=== PATIENT | male | born 1940 | race Caucasian/White ===

== ENCOUNTER 2024-10-21 11:13 | Inpatient (IN) | payer OTHER ==
[2024-10-21] MEDS ORDERED: LOPERAMIDE HCL 2 MG CAPSULE PO PRN (11:44)
[2024-10-21] MEDS ORDERED: hydrOXYzine PAMOATE 25 MG CAPSULE (FP) PO PRN (11:44)
[2024-10-21] MEDS ORDERED: IBUPROFEN 600 MG TABLET (FP) PO PRN (11:44)
[2024-10-21] MEDS ORDERED: IBUPROFEN 400 MG TABLET (FP) PO PRN (11:44)
[2024-10-21] MEDS ORDERED: BENZONATATE 200 MG CAPSULE PO PRN (11:44)
[2024-10-21] MEDS ORDERED: ONDANSETRON *ODT* 4 MG TABLET SL PRN (11:44)
[2024-10-21] MEDS ORDERED: BENZOCAINE/MENTHOL (CHLORASEPTIC ) LOZENGE MM PRN (11:44)
[2024-10-21] MEDS ORDERED: BISMUTH SUBSALICYLATE 262 MG/15 ML BTL PO PRN (11:44)
[2024-10-21] MEDS ORDERED: DICYCLOMINE HCL 10 MG CAPSULE PO PRN (11:44)
[2024-10-21] MEDS ORDERED: MAG HYDROX/AL HYDROX/SIMETH 30 ML UNIT-DOSE CUP PO PRN (11:44)
[2024-10-21] MEDS ORDERED: guaiFENesin 600 MG TABLET.ER (FP) PO PRN (11:44)
[2024-10-21] MEDS ORDERED: NALOXONE (NARCAN) HCL 4 MG/0.1 ML SPRAY NS PRN (11:44)
[2024-10-21] MEDS ORDERED: POLYETHYLENE GLYCOL (HEALTHYLAX) 3350 17 GM PACKET PO PRN (11:44)
[2024-10-21] MEDS ORDERED: MAGNESIUM HYDROX 2400MG/30ML ORAL SUSPENSION 30 ML CUP PO PRN (11:44)
[2024-10-21] MEDS ORDERED: ACETAMINOPHEN 325 MG TABLET (FP) PO PRN (11:44)
[2024-10-21] MEDS ORDERED: METHOCARBAMOL 500 MG TABLET PO PRN (11:44)
[2024-10-21 11:45] VITALS: BMI 25.7
[2024-10-21] MEDS: cloNIDine HCL 0.1 MG TABLET PO SCH (13:20)
[2024-10-21] MEDS: MELATONIN 5 MG TABLETS PO SCH (22:15)
[2024-10-21] MEDS: THIAMINE 100 MG TABLET PO SCH (22:15)
[2024-10-22] MEDS: methaDONE 40 MG, methaDONE 10 MG PO SCH (05:24)
[2024-10-22] MEDS ORDERED: methaDONE HCL 10 MG TABLET PO SCH (06:00)
[2024-10-22] MEDS: methaDONE HCL 10 MG TABLET PO ONE (09:31)
[2024-10-22] MEDS: PRENATAL VITAMINS W/ FOLIC ACID TABLET (FP) PO SCH (09:31)
[2024-10-22 12:06] LABS: HEMATOCRIT 40.7 % (35.4-49); HEMOGLOBIN 13.6 GM/dL (11.7-16.9); MCH 30.1 pg (25.7-33.7); MCHC 33.5 g/dl (32.0-35.9); MEAN CELL VOLUME 89.8 fl (80-96); MEAN PLT VOLUME 10.4 fl (7.5-11.1); PLATELET COUNT 153 10^3/uL (134-434); RBC 4.53 M/mm3 (4.00-5.60); RDW 13.6 % (11.9-15.9); WHITE BLOOD COUNT 4.7 K/mm3 (4.0-10.0)
[2024-10-22 12:39] LABS: POTASSIUM 4.6 mmol/L (3.5-5.1)
[2024-10-22 12:46] VITALS: BP 108/74; PULSE 77; RESP 17; TEMP 97.7
[2024-10-22 12:48] LABS: CALCIUM 9.5 mg/dL (8.5-10.1)
[2024-10-22 12:49] LABS: BLOOD UREA NITROGEN 22.4 mg/dL (7-18)
[2024-10-22 12:52] LABS: CREATININE 1.2 mg/dL (0.55-1.3)
[2024-10-22 12:54] LABS: BILIRUBIN,TOTAL 0.6 mg/dL (0.2-1); TOT PROT 7.6 g/dl (6.4-8.2)
[2024-10-22] MEDS: NALOXONE (NYS OPIOID OVERDOSE PROGRAM) 4 MG/0.1 ML SPRAY NS SCH (13:21)
[2024-10-23] MEDS ORDERED: cloNIDine HCL 0.1 MG TABLET PO PRN
[2024-10-24] MEDS ORDERED: methaDONE HCL 10 MG TABLET PO ONE (10:00)
[2024-10-26] MEDS ORDERED: methaDONE HCL 10 MG TABLET PO ONE (10:00)
== END 2024-10-22 14:50 | disposition home or self-care (01) | DRG 897 ==
LOC: YASAS 11:13 → Y6N 12:38
PROVIDERS: ADMIT Allergy & Immunology; ATTEND Surgery
PROC: HZ2ZZZZ Detoxification Services for Substance Abuse Treatment (ICD-10-PCS; principal; 2024-10-21)
DX: F11.23 Opioid dependence with withdrawal (principal); G47.00 Insomnia, unspecified; R26.2 Difficulty in walking, not elsewhere classified; Z99.89 Dependence on other enabling machines and devices; Z56.0 Unemployment, unspecified
CPT/HCPCS: 36415; 80053; 80307; 85027; 86780; 93005; 93010